=== PATIENT | male | born 1975 | race Caucasian/White ===

== ENCOUNTER 2016-10-18 13:19 | Inpatient (IN) | payer OTHER ==
[~2016-10-18] VITALS: Ht 167.6 cm; Wt 117.9 kg
[2016-10-18 14:16] LABS: BASOPHIL % 0.5 % (0-2); PLATELET COUNT 225 x10^3mcL (130-400); RED CELL DISTRIBUTION WIDTH 13.7 % (11.5-14.5)
[2016-10-18 14:52] LABS: microscopic required? NO
[2016-10-18 14:52] LABS: CALCIUM 8.5 mg/dL (8.5-10.1); CARBON DIOXIDE 27.1 mmol/L (21-32); CHLORIDE SERUM 106 mmol/L (98-107); CREATININE SERUM 0.7 mg/dL (0.7-1.3); GFR1 > 60 mL/min; GLUCOSE SERUM 254 mg/dL (74-106); POTASSIUM SERUM 3.8 mmol/L (3.5-5.1); SODIUM SERUM 143 mmol/L (136-145)
[2016-10-18 14:56] LABS: ALBUMIN 3.5 g/dL (3.4-5.0); ALKALINE PHOSPHATASE 90 U/L (46-116); ALT/SGPT 52 U/L (16-63); AST/SGOT 26 U/L (15-37); BILIRUBIN TOTAL 0.3 mg/dL (0.20-1.00); CHOLESTEROL 192 mg/dL (<200); CHOLESTEROL/HDL RATIO 3.7; HDL CHOLESTEROL 52 mg/dL (40-60); LIPASE 114 IU/L (73-393); TOTAL PROTEIN, SERUM 7.2 g/dL (6.4-8.2)
[2016-10-18 14:58] LABS: urine erythrocyte NEGATIVE (NEGATIVE)
[2016-10-18 15:09] LABS: TRIGLYCERIDES 218 mg/dL (<150)
[2016-10-18 15:20] LABS: FREE T4 0.98 ng/dL (0.76-1.46); FREE THYROXINE INDEX 2.4 ug/dL (1.4-4.5); T4(THYROXINE) 6.8 ug/dL (4.7-13.3)
[2016-10-18 15:32] LABS: T3 TOTAL 1.08 ng/mL
[2016-10-18 17:07] VITALS: BP 151/96
[2016-10-18 17:10] LABS: MAGNESIUM 1.9 mg/dL (1.8-2.4); PHOSPHOROUS 3.5 mg/dL (2.5-4.9)
[2016-10-18 17:14] LABS: AMPHETAMINE QUAL UR POSITIVE (NEG <=1000)
[2016-10-18 21:11] VITALS: BP 163/95
[2016-10-19] VITALS (7 sets, daily range): BP systolic 141–169; BP diastolic 82–107
[2016-10-19 07:14] LABS: CALCIUM 8.1 mg/dL (8.5-10.1); CARBON DIOXIDE 25.1 mmol/L (21-32); CHLORIDE SERUM 106 mmol/L (98-107); CREATININE SERUM 0.7 mg/dL (0.7-1.3); GFR1 > 60 mL/min; GLUCOSE SERUM 203 mg/dL (74-106); POTASSIUM SERUM 3.9 mmol/L (3.5-5.1); SODIUM SERUM 140 mmol/L (136-145)
[2016-10-19 07:16] LABS: BASOPHIL % 0.4 % (0-2); PLATELET COUNT 209 x10^3mcL (130-400)
[2016-10-20 06:41] LABS: PLATELET COUNT 216 x10^3mcL (130-400); RED CELL DISTRIBUTION WIDTH 13.8 % (11.5-14.5)
[2016-10-20 06:52] VITALS: BP 156/95
[2016-10-20 06:56] LABS: CHLORIDE SERUM 105 mmol/L (98-107); CREATININE SERUM 0.6 mg/dL (0.7-1.3); GFR1 > 60 mL/min; GLUCOSE SERUM 190 mg/dL (74-106); MAGNESIUM 1.8 mg/dL (1.8-2.4); PHOSPHOROUS 3.5 mg/dL (2.5-4.9); SODIUM SERUM 140 mmol/L (136-145)
[2016-10-20 07:01] VITALS: BP 168/95
[2016-10-20 07:55] VITALS: BP 166/102
[2016-10-20 09:40] VITALS: BP 158/87
[2016-10-20 12:32] LABS: BAND NEUTROPHIL 3 % (0-10); BASOPHIL 0 % (0-2); MONOCYTE 4 % (0-7); SEGMENTED NEUTROPHILS 75 % (37-75)
[2016-10-20 12:33] LABS: PLATELET MORPHOLOGY PLATELETS NORMAL; rbc morphology (normal/abnorm) ABNORMAL (NORMAL)
[2016-10-20 12:57] VITALS: BP 150/86
[2016-10-20] MEDS ORDERED: NOR10 PO (13:44)
[2016-10-20] MEDS ORDERED: LIPI10 PO (13:44)
[2016-10-20] MEDS ORDERED: ZES20 PO (13:45)
[2016-10-20] MEDS ORDERED: ECO81 PO (13:46)
[2016-10-20] MEDS ORDERED: METFORMIN HCL1000 MG PO (13:48)
[2016-10-20 14:21] VITALS: BP 150/86
== END 2016-10-20 14:40 | disposition home or self-care (01) | DRG 206 ==
LOC: ED 13:19 → DU 15:32
PROVIDERS: Family Medicine; Specialist; ADMIT Family Medicine
DX: M94.0 Chondrocostal junction syndrome [Tietze] (principal); F10.188 Alcohol abuse with other alcohol-induced disorder; E11.65 Type 2 diabetes mellitus with hyperglycemia; E11.40 Type 2 diabetes mellitus with diabetic neuropathy, unspecified; K21.9 Gastro-esophageal reflux disease without esophagitis; I10 Essential (primary) hypertension; E78.5 Hyperlipidemia, unspecified; F15.188 Other stimulant abuse with other stimulant-induced disorder; F12.188 Cannabis abuse with other cannabis-induced disorder; Z77.22 Contact with and (suspected) exposure to environmental tobacco smoke (acute) (chronic)
CPT/HCPCS: 82962; 83880; 84439; J1885; J3490; J7030; Q0092

== ENCOUNTER 2017-04-02 12:08 | Inpatient (IN) | payer OTHER ==
[~2017-04-02] VITALS: Ht 172.7 cm; Wt 120.8 kg
[~2017-04-02 12:08] MED LIST: ECO81 PO; LIPI10 PO; METFORMIN HCL1000 MG PO; NOR10 PO; ZES20 PO
[2017-04-02 14:48] LABS: BASOPHIL % 0.2 % (0-2); RED CELL DISTRIBUTION WIDTH 13.3 % (11.5-14.5)
[2017-04-02 14:57] LABS: PLATELET COUNT 119 x10^3mcL (130-400)
[2017-04-02 16:22] LABS: CALCIUM 7.7 mg/dL (8.5-10.1); CARBON DIOXIDE 23.8 mmol/L (21-32); CREATININE SERUM 1.4 mg/dL (0.7-1.3); POTASSIUM SERUM 3.4 mmol/L (3.5-5.1)
[2017-04-02 16:26] LABS: BILIRUBIN TOTAL 0.5 mg/dL (0.20-1.00); TOTAL PROTEIN, SERUM 6.5 g/dL (6.4-8.2)
[2017-04-02] MEDS ORDERED: UNKNOWN BP MED (17:54)
[2017-04-02] MEDS ORDERED: METFORMIN HYDR500 M1 PO (17:54)
[2017-04-02 18:32] LABS: MAGNESIUM 1.2 mg/dL (1.8-2.4); PHOSPHOROUS 1.5 mg/dL (2.5-4.9)
[2017-04-02 18:33] LABS: CHOLESTEROL/HDL RATIO 2.2
[2017-04-02 18:37] LABS: T3 TOTAL 0.77 ng/mL
[2017-04-02 18:40] LABS: FREE T4 1.2 ng/dL (0.76-1.46); FREE THYROXINE INDEX 2.5 ug/dL (1.4-4.5); T4(THYROXINE) 6.5 ug/dL (4.7-13.3)
[2017-04-02 21:46] VITALS: BP 117/73
[2017-04-02 21:50] VITALS: Ht 172.7 cm; Wt 120.8 kg
[2017-04-03 03:06] LABS: CALCIUM 7.6 mg/dL (8.5-10.1); CARBON DIOXIDE 23.6 mmol/L (21-32); CREATININE SERUM 1.4 mg/dL (0.7-1.3); MAGNESIUM 1.7 mg/dL (1.8-2.4); PHOSPHOROUS 3.8 mg/dL (2.5-4.9); POTASSIUM SERUM 4.5 mmol/L (3.5-5.1)
[2017-04-03 03:17] LABS: RED CELL DISTRIBUTION WIDTH 13.5 % (11.5-14.5)
[2017-04-03 03:18] LABS: PLATELET COUNT 101 x10^3mcL (130-400)
[2017-04-03 03:41] LABS: UA SPECIFIC GRAVITY 1.025 (1.005-1.035); microscopic required? YES; urine erythrocyte NEGATIVE (NEGATIVE)
[2017-04-03 03:46] LABS: AMPHETAMINE QUAL UR POSITIVE (NEG <=1000)
[2017-04-03 03:57] LABS: BAND NEUTROPHIL 41 % (0-10); METAMYELOCTE 29 % (0-2); MONOCYTE 2 % (0-7); MYELOCYTE 2 % (0-2); PLATELET MORPHOLOGY LARGE PLATELET SEEN; SEGMENTED NEUTROPHILS 21 % (37-75); rbc morphology (normal/abnorm) NORMAL (NORMAL)
[2017-04-03 06:45] VITALS: BP 95/56
[2017-04-03 09:08] VITALS: BP 115/74
[2017-04-03] MEDS ORDERED: LEVOFLOXACIN750 M1 PO (13:17)
[2017-04-03 13:18] VITALS: BP 100/55
[2017-04-03] MEDS ORDERED: LAC PO (13:18)
[2017-04-03 13:20] VITALS: BP 100/55
== END 2017-04-03 15:55 | disposition home or self-care (01) | DRG 871 ==
LOC: ED 12:08 → DU 17:43 → IC 17:43 → DU 21:30
PROVIDERS: Emergency Medicine; Family Medicine
DX: A41.89 Other specified sepsis (principal); J09.X1 Influenza due to identified novel influenza A virus with pneumonia; J12.89 Other viral pneumonia; J96.00 Acute respiratory failure, unspecified whether with hypoxia or hypercapnia; N17.0 Acute kidney failure with tubular necrosis; Z68.41 Body mass index [BMI] 40.0-44.9, adult; E44.0 Moderate protein-calorie malnutrition; R65.20 Severe sepsis without septic shock; B97.89 Other viral agents as the cause of diseases classified elsewhere; M94.0 Chondrocostal junction syndrome [Tietze]; E11.65 Type 2 diabetes mellitus with hyperglycemia; E11.42 Type 2 diabetes mellitus with diabetic polyneuropathy; I10 Essential (primary) hypertension; E83.42 Hypomagnesemia; E87.6 Hypokalemia; E83.39 Other disorders of phosphorus metabolism; E83.51 Hypocalcemia; F15.10 Other stimulant abuse, uncomplicated; F10.10 Alcohol abuse, uncomplicated; Z79.82 Long term (current) use of aspirin; Z79.84 Long term (current) use of oral hypoglycemic drugs
CPT/HCPCS: 82962; 83880; 84439; 87804; 94150; J0456; J1885; J1956; J2543; J3475; J7030; J7620; Q0092

== ENCOUNTER 2017-07-05 22:05 | Emergency (ER) | payer OTHER ==
[~2017-07-05 22:05] MED LIST changes: +LAC PO; +LEVOFLOXACIN750 M1 PO; +METFORMIN HYDR500 M1 PO; +UNKNOWN BP MED
[2017-07-05 23:44] LABS: PLATELET COUNT 172 x10^3mcL (130-400); RED CELL DISTRIBUTION WIDTH 13.5 % (11.5-14.5)
[2017-07-05 23:47] LABS: CALCIUM 8.3 mg/dL (8.5-10.1); CARBON DIOXIDE 26.1 mmol/L (21-32); CHLORIDE SERUM 101 mmol/L (98-107); CREATININE SERUM 0.7 mg/dL (0.7-1.3); GFR1 > 60 mL/min; GLUCOSE SERUM 277 mg/dL (74-106); POTASSIUM SERUM 4.1 mmol/L (3.5-5.1); SODIUM SERUM 132 mmol/L (136-145)
[2017-07-05 23:48] LABS: BASOPHIL % 0 % (0-2)
[2017-07-05 23:52] LABS: ALBUMIN 3.1 g/dL (3.4-5.0); ALKALINE PHOSPHATASE 92 U/L (46-116); ALT/SGPT 32 U/L (16-63); AST/SGOT 14 U/L (15-37); BILIRUBIN TOTAL 0.5 mg/dL (0.20-1.00); TOTAL PROTEIN, SERUM 7.4 g/dL (6.4-8.2)
[2017-07-06 00:34] VITALS: BP 157/91
== END 2017-07-06 00:34 | disposition home or self-care (01) ==
LOC: ED 22:05
PROVIDERS: Emergency Medicine
DX: L03.114 Cellulitis of left upper limb (principal); R07.89 Other chest pain; I10 Essential (primary) hypertension; E11.9 Type 2 diabetes mellitus without complications
CPT/HCPCS: 36415; 83880; Q0092

== ENCOUNTER → 2017-07-15 | Outpatient (CLI) | payer OTHER | END | disposition home or self-care (01) | LOC: US 10:33 | PROC: B54CZZZ Ultrasonography of Left Lower Extremity Veins (ICD-10-PCS; principal; 2017-07-15) | DX: M79.89 Other specified soft tissue disorders (principal) ==